=== PATIENT | female | born 1980 | race Caucasian/White ===

== ENCOUNTER → 2020-11-21 10:41 | Outpatient (CLI) | payer BC, SELFPAY ==
--- NOTE | ~2020-11-21 | MM_ITS ---
EXAMINATION: MM screening reynold BI w giovanna HISTORY: Screening TECHNIQUE: Craniocaudal and mediolateral oblique 3-D tomosynthesis images were obtained and synthetic 2-D images were generated. CAD analysis was submitted and interpreted. COMPARISON: No prior mammogram is available for comparison at this institution. BREAST PARENCHYMAL COMPOSITION: There are scattered areas of fibroglandular density. FINDINGS: There is no evidence of suspicious mass, calcification, or architectural distortion to sugg est malignancy in either breast. There has been no suspicious interval change. IMPRESSION: 1. No mammographic evidence of malignancy. 2. Recommend routine screening mammography in one year. BI-RADS Category 1: Negative Reviewed, dictated and finalized at location [facility].
== END ==
PROVIDERS: PCP Physician Assistant; Visit Provider Physician Assistant
DX: Z12.31 Encounter for screening mammogram for malignant neoplasm of breast (principal)
CPT/HCPCS: 77063; 77067

== ENCOUNTER 2021-06-09 08:39 | Outpatient (RCR) | payer BC, SELFPAY ==
[2021-06-09 12:32] VITALS: BP 139/90; PULSE 80; RESP 18; TEMP 35.9; O2SAT 99
[2021-06-09] MEDS: diphenhydrAMINE HCl CAP 25 MG CAPSULE PO (12:37)
[2021-06-09] MEDS: FAMOTIDINE 20 MG TABLET PO (12:37)
[2021-06-09] MEDS: ACETAMINOPHEN 325 MG TABLET 650 MG PO (12:37)
[2021-06-09 14:17] VITALS: BP 150/80
--- NOTE | 2021-06-10 09:50 | PC.NURSE ---
Called MS Mazariegos and she is feeling tired but better. She was happy we had this service available and has no other questions at this time.
== END 2021-06-09 17:00 ==
LOC: AMCINF 08:39
PROVIDERS: PCP Family Medicine; Visit Provider Internal Medicine Hematology & Oncology
DX: U07.1 COVID-19 (principal)
CPT/HCPCS: A9270; M0243; Q0243

== ENCOUNTER 2024-04-11 22:57 | Emergency (ER) | payer BC, SELFPAY ==
[2024-04-11 23:22] LABS: Basophils Percent Auto 0.5 % (0.2-1.2); Eosinophils Absolute Auto 0.3 K/mm3 (0-0.3); Eosinophils Percent Auto 3.7 % (0-4.4); Hematocrit 38.8 % (37.0-47.0); Hemoglobin 13.7 g/dL (12.0-15.0); Immature Granulocyte Absolute 0.02 K/mm3 (0.00-0.031); Immature Granulocyte Percent A 0.2 % (0-0.5); Lymphocytes Absolute Auto 2.06 K/mm3 (0.9-3.2); Lymphocytes Percent Auto 24.4 % (18.3-44.2); Mean Corpuscular HGB Conc 35.3 g/dl (32-36); Mean Corpuscular Hemoglobin 29.3 pg (26-34); Mean Corpuscular Volume 83.1 fl (80-100); Mean Platelet Volume 8.8 fl (7.4-10.4); Monocytes Absolute Auto 0.6 K/mm3 (0.1-0.6); Monocytes Percent Auto 6.6 % (2.6-8.5); Neutrophils Absolute Auto 5.5 K/mm3 (1.3-6.7); Neutrophils Percent Auto 64.6 % (45.5-73.1); Platelet Count Result 345 k/mm3 (150-375); Red Blood Count 4.67 M/mm3 (4.2-5.4); Red Cell Distribution Width 13.8 % (11.5-14.5); White Blood Count 8.4 K/mm3 (4.5-10.0)
[2024-04-11 23:32] LABS: Alanine Aminotransferase 27 U/L (6-35); Albumin Level 4.7 g/dL (3.5-5.1); Alkaline Phosphatase 75 U/L (38-126); Anion Gap 9 mmol/L (4-12); Aspartate Amino Transferase 29 U/L (14-36); Bilirubin,Total 0.6 mg/dL (0.2-1.3); Blood Urea Nitrogen 11 mg/dL (7-17); Calcium 9.3 mg/dL (8.4-10.2); Carbon Dioxide 31 mmol/L (22-30); Chloride 98 mmol/L (98-107); Estimated CRCL calculation 155 ml/min; Estimated Glomerular Filt Rate > 60; Glucose 125 mg/dL (65-110); Lipase 66 U/L (23-300); Potassium 3.1 mmol/L (3.4-5.0); Sodium 138 mmol/L (137-145)
--- NOTE | 2024-04-11 23:59 | ED.ABDPAIN ---
HPI - Abdominal Pain General Chief Complaint: Abdominal Pain Stated Complaint: abd pain/cramping, vomiting Time Seen by Provider: 04/11/24 23:58 Source: patient Mode of arrival: ambulatory Limitations: no limitations History of Present Illness HPI narrative: This is a 43 year old female with PMH of PCOS, HTN, HLD, hepatic steatosis who presents to the ED with chief complaint of sudden-onset left-sided abdominal pain/cramping this started this evening around 1900. Patient reports that she has had associated N/V. Reports constipation and diffuse abdominal cramping pain with bowel movements. Describes pain is mainly a cramping and spasm like pain. Denies fevers, chest pain, shortness of breath, diarrhea, GI bleeding symptoms. Related Data Home Medications Medication Instructions Recorded Confirmed nystatin 100,000 unit/gram topical topical 09/06/23 ointment omeprazole 20 mg capsule,delayed 20 mg PO 09/06/23 release triamcinolone acetonide 0.1 % topical 09/06/23 topical ointment Allergies Allergy/AdvReac Type Severity Reaction Status Date / Time No Known Allergies Allergy Verified 09/06/23 10:33 Review of Systems Review of Systems: All systems as dictated in HPI PMFSH Past Medical History Medical History (Updated 04/12/24 @ 03:44 by Hernandez Nj PA-C) Anxiety Depression GERD (gastroesophageal reflux disease) Hepatic steatosis Hyperlipidemia Hypertension Hypothyroidism Lichen sclerosus PCOS (polycystic ovarian syndrome) Surgical History Surgical History (Updated 09/09/23 @ 14:44 by Yesi Mcrae, PAKristineC) History of total abdominal hysterectomy and bilateral salpingo-oophorectomy Family History Family History (Updated 09/09/23 @ 10:11 by Yesi Mcrae, PAKristineC) Father Hypertension Acute myocardial infarction Heart disease S/P CABG Mother Hypertension Nbzjrlh-Aqsao-Fzedr disease Grandparent Cerebrovascular accident Heart disease Hypertension Acute myocardial infarction Misxmdv-Zwpwz-Dyvpi disease Hypothyroidism Social History Social History (Updated 09/06/23 @ 10:38 by Le Ramos MA) Smoking status: Former smoker Tobacco type: cigarettes Additional smoking assessment comments: socially in college Alcohol intake: former Substance use: current Substance use type: marijuana Do You Feel Safe in your Home?: Yes Lack of Transportation: No Lack of Food: Never True Current Housing: I Have Housing Concerned About Future Housing: No Difficulty Paying Gas/Electric Bills: No Difficulty Paying for Meds: No Currently Unemployed: No Education: Bachelor's Degree Difficulty w/ Childcare or Family Care: No Living arrangements: with family Occupation/Education: unemployed Gender identity (if verbalized by the patient): Female Sexual Orientation (if Verbalized by the Patient): Straight or Heterosexual Spiritual care concerns: No Exam Narrative: GENERAL: Well-appearing, well-nourished, and in no acute distress. HEAD: Normocephalic, atraumatic. EYES: PERRLA and EOMI. ENT: Nares clear, no rhinorrhea or epistaxis. Mucous membranes moist. Oropharynx without tonsillar hypertrophy exudate or other lesions. NECK: Supple. No adenopathy or masses. CHEST: No respiratory distress. Clear to auscultation. No wheezes rales or rhonchi HEART: Regular rate and rhythm. No murmur heard. Normal peripheral pulses. ABDOMEN: Soft, nontender, nondistended, normal active bowel sounds. Negative flank tenderness MSK: Normal range of motion. No edema. SKIN: Warm, dry, no rash. NEURO: Alert and oriented x4. No focal deficits. PSYCH: Normal mood and affect. Course Vital Signs Vital signs: Vital Signs Temperature 97.6 F 04/12/24 00:16 Pulse Rate 63 04/12/24 00:16 Respiratory Rate 17 04/12/24 00:16 Blood Pressure 187/123 H 04/12/24 00:16 Pulse Oximetry 100 04/12/24 00:16 Temperature 97.6 F 04/12/24
[2024-04-12] MEDS: SODIUM CHLORIDE 0.9% IV 1,000 ML 999 ML IV CONT (00:12)
[2024-04-12] MEDS: ONDANSETRON INJ 4 MG/2 ML VIAL IV PUSH (00:13)
[2024-04-12] MEDS: KETOROLAC 15 MG/ML VIAL (*BKC) IV PUSH (00:14)
[2024-04-12] MEDS: POTASSIUM CHLORIDE 20 MEQ ER TABLET 40 MEQ PO (00:15)
[2024-04-12 00:16] VITALS: BP 187/123; PULSE 63; RESP 17; TEMP 36.4; O2SAT 100
--- NOTE | 2024-04-12 00:20 | PC.NURSE ---
Patient politely refuses straight catheter for urinary sample
[2024-04-12] MEDS: DICYCLOMINE HCL INJ 20 MG/2 ML VIAL IM (00:32)
[2024-04-12 02:15] VITALS: BP 157/80; PULSE 92; RESP 16; TEMP 36.7; O2SAT 99
[2024-04-12 03:52] LABS: BEDSIDEPREGUCG Negative (Negative)
[2024-04-12 03:58] LABS: Add Urine Microscopic? NO; Appearance Urine Clear (Clear); Bacteria Urine None Seen /hpf; Bilirubin Urine Negative (Negative); Blood Urine Negative (Negative); Color Urine Yellow (Yellow); Glucose Urine UA Negative (Negative); Ketones Urine Negative (Negative); Leukocyte Esterase Ur Negative LEU/UL (Negative); Nitrate Urine Negative (Negative); Non Pathogenic Casts 0-2; Protein Urine Negative (Negative); RBC Urine 0-2 /hpf (0-2); Specific Grav Ur 1.008 (1.001-1.035); Squamous Epithelial Cell Urine None Seen /hpf (Few); Urobilinogen Urine 0.2 mg/dL (<2.0); WBC Urine 0-5 /hpf (0-3); pH Urine 6.5 (5.0-9.0)
== END 2024-04-12 02:20 | disposition home or self-care (01) ==
PROVIDERS: Emergency Medicine; Emergency Provider Physician Assistant
DX: K52.9 Noninfective gastroenteritis and colitis, unspecified (principal); I10 Essential (primary) hypertension; E78.5 Hyperlipidemia, unspecified; E28.2 Polycystic ovarian syndrome; E03.9 Hypothyroidism, unspecified; K21.9 Gastro-esophageal reflux disease without esophagitis; Z87.891 Personal history of nicotine dependence; Z79.899 Other long term (current) drug therapy
CPT/HCPCS: 36415; 80053; 81003; 81025; 83690; 85025; 96361; 96372; 96374; 96375; 99284; A9270; J0500; J1885; J2405; J7030

== ENCOUNTER 2024-08-31 00:26 | Day surgery (SDC) | payer BC, SELFPAY ==
[2024-08-20 11:16] VITALS: BMI 49.7
[2024-08-31 12:22] VITALS: BP 170/98; PULSE 78; RESP 16; TEMP 35.8; O2SAT 100; BMI 50.5
[2024-08-31] MEDS: LACTATED RINGERS 1,000 ML 150 ML IV CONT (12:31)
--- NOTE | 2024-08-31 12:35 | WPDANESEPPF ---
Anes - Initial Pre Proc Eval Procedure: Operation Date: 08/31/24 13:30 Proposed Procedures p Esophagogastroduodenoscopy - Kahlil Reynolds MD Date/Time: 08/31/24 12:35 Surgeon: Kahlil Reynolds MD Pre Op Diagnosis: GERD Patient Data Age: 43 Gender: F Height: 1.63 m Weight: 133.5 kg Last Vital Signs Temp 35.8 C L 08/31/24 12:22 Pulse 78 08/31/24 12:22 Resp 16 08/31/24 12:22 BP 170/98 H 08/31/24 12:22 Pulse Ox 100 08/31/24 12:22 O2 Del Method Room Air 08/31/24 12:22 Allergies Allergy/AdvReac Type Severity Reaction Status Date / Time No Known Allergies Allergy Verified 08/31/24 12:19 Home Medications ?Medication ?Instructions ?Recorded ?Confirmed ?Type nystatin 100,000 unit/gram topical 1 applic topical BID PRN itching 09/06/23 08/31/24 History ointment omeprazole 20 mg capsule,delayed 20 mg PO DAILY 09/06/23 08/31/24 History release triamcinolone acetonide 0.1 % 1 applic topical PRN itching 09/06/23 History topical ointment nifedipine 60 mg tablet,extended See Rx Instructions .Route 09/16/23 08/20/24 Rx release .COMPLEX #90 tabs venlafaxine 150 mg 150 mg PO DAILY depression 90 days 11/10/23 08/31/24 Rx capsule,extended release 24 hr #90 caps rosuvastatin 10 mg tablet See Rx Instructions .Route 12/21/23 08/31/24 Rx .COMPLEX #90 tabs levothyroxine 137 mcg tablet See Rx Instructions .Route 03/29/24 08/31/24 Rx .COMPLEX #90 tabs losartan 100 See Rx Instructions .Route 03/29/24 08/31/24 Rx mg-hydrochlorothiazide 25 mg tablet .COMPLEX #90 tabs methocarbamol 500 mg tablet 500 mg PO .qday 08/20/24 08/31/24 History potassium chloride 25 mEq oral 20 meq PO DAILY 08/20/24 08/31/24 History packet Patient hx anesthesia problems: none Family hx anesthesia problems: none Results Review: All pre-operative results and documents have been reviewed as part of the pre-operative evaluation. [facility] Past Medical History Medical History (Updated 04/13/24 @ 00:00 by Gary Moncada) Lichen sclerosus Anxiety Depression Hepatic steatosis GERD (gastroesophageal reflux disease) Hyperlipidemia Hypertension Hypothyroidism PCOS (polycystic ovarian syndrome) Surgical History Surgical History (Updated 09/09/23 @ 14:44 by Yesi Mcrae, PAKhai) History of total abdominal hysterectomy and bilateral salpingo-oophorectomy Family History Family History (Updated 09/09/23 @ 10:11 by Yesi Mcrae, PA-C) Father Hypertension Acute myocardial infarction Heart disease S/P CABG Mother Hypertension Nknpbcb-Cagnb-Opwkb disease Grandparent Cerebrovascular accident Heart disease Hypertension Acute myocardial infarction Vzhawti-Qgvef-Oyryo disease Hypothyroidism Social History Social History (Updated 08/31/24 @ 12:39 by Robert Cummins DO) Smoking status: Current some day smoker Tobacco type: e-cigarettes/vaping Additional smoking assessment comments: socially in college Alcohol intake: former Substance use: former Substance use type: marijuana Other substance usage details: daily Do You Feel Safe in your Home?: Yes Lack of Transportation: No Lack of Food: Never True Current Housing: I Have Housing Concerned About Future Housing: No Difficulty Paying Gas/Electric Bills: No Difficulty Paying for Meds: No Currently Unemployed: No Education: Bachelor's Degree Difficulty w/ Childcare or Family Care: No Living arrangements: with family Occupation/Education: unemployed Gender identity (if verbalized by the patient): Female Sexual Orientation (if Verbalized by the Patient): Straight or Heterosexual Spiritual care concerns: No Anes - Eval Final PreProcedure Day of Procedure 08/31/24 12:35 Patient weight: super morbidly obese Heart: regular rate and rhythm Lungs: clear to auscultation Airway: Mallampati scale class II Neurological: alert and oriented Last oral intake: >/= 8 hours ASA classification: III Emergent: no Anesthetic plan: proceed Anesthesia type and monitoring: general GIVS and standard monitoring Results Review: All pre-operative results and documents have been reviewed as part of the pre-operative evaluation. Informed Consent: The patient's anesthetic plan and its attendant risks and benefits were discussed with the patient/family/POA. Questions were solicited and answers provided to the satisfaction of the patient/family/POA.
--- NOTE | 2024-08-31 13:20 | PM.HPGS ---
History of Present Illness History of Present Illness Consent: Risks, benefits, and alternatives have been discussed and questions answered. Patient agrees to proceed with procedure. Chief complaint: GERD Narrative: Margarita Mazariegos is a 43 year old female with gerd on ppi, never had egd, also morbid obesity Review of Systems Review of Systems: All systems reviewed & are unremarkable except as noted in HPI and below PMFSH Past Medical History Medical History (Updated 08/31/24 @ 13:24 by Kahlil Reynolds MD) Obesity, morbid, BMI 50 or higher Lichen sclerosus Anxiety Depression Hepatic steatosis GERD (gastroesophageal reflux disease) Hyperlipidemia Hypertension Hypothyroidism PCOS (polycystic ovarian syndrome) Surgical History Surgical History (Updated 09/09/23 @ 14:44 by Yesi Mcrae, PAKristineC) History of total abdominal hysterectomy and bilateral salpingo-oophorectomy Family History Family History (Updated 09/09/23 @ 10:11 by Yesi Mcrae, PAKristineC) Father Hypertension Acute myocardial infarction Heart disease S/P CABG Mother Hypertension Smqczcj-Dxtzm-Mrsuq disease Grandparent Cerebrovascular accident Heart disease Hypertension Acute myocardial infarction Tdugxva-Qxbjq-Nosyu disease Hypothyroidism Social History Social History (Updated 08/31/24 @ 12:39 by Robert Cummins DO) Smoking status: Current some day smoker Tobacco type: e-cigarettes/vaping Additional smoking assessment comments: socially in college Alcohol intake: former Substance use: former Substance use type: marijuana Other substance usage details: daily Do You Feel Safe in your Home?: Yes Lack of Transportation: No Lack of Food: Never True Current Housing: I Have Housing Concerned About Future Housing: No Difficulty Paying Gas/Electric Bills: No Difficulty Paying for Meds: No Currently Unemployed: No Education: Bachelor's Degree Difficulty w/ Childcare or Family Care: No Living arrangements: with family Occupation/Education: unemployed Gender identity (if verbalized by the patient): Female Sexual Orientation (if Verbalized by the Patient): Straight or Heterosexual Spiritual care concerns: No Meds Home Medications and Allergies Home Medications ?Medication ?Instructions ?Recorded ?Confirmed ?Type nystatin 100,000 unit/gram topical 1 applic topical BID PRN itching 09/06/23 08/31/24 History ointment omeprazole 20 mg capsule,delayed 20 mg PO DAILY 09/06/23 08/31/24 History release triamcinolone acetonide 0.1 % 1 applic topical PRN itching 09/06/23 History topical ointment nifedipine 60 mg tablet,extended See Rx Instructions .Route 09/16/23 08/20/24 Rx release .COMPLEX #90 tabs venlafaxine 150 mg 150 mg PO DAILY depression 90 days 11/10/23 08/31/24 Rx capsule,extended release 24 hr #90 caps rosuvastatin 10 mg tablet See Rx Instructions .Route 12/21/23 08/31/24 Rx .COMPLEX #90 tabs levothyroxine 137 mcg tablet See Rx Instructions .Route 03/29/24 08/31/24 Rx .COMPLEX #90 tabs losartan 100 See Rx Instructions .Route 03/29/24 08/31/24 Rx mg-hydrochlorothiazide 25 mg tablet .COMPLEX #90 tabs methocarbamol 500 mg tablet 500 mg PO .qday 08/20/24 08/31/24 History potassium chloride 25 mEq oral 20 meq PO DAILY 08/20/24 08/31/24 History packet Allergies Allergy/AdvReac Type Severity Reaction Status Date / Time No Known Allergies Allergy Verified 08/31/24 12:19 Vital Signs Vital Signs - 24 hr 08/31/24 12:22 Temperature 96.5 F L Pulse Rate 78 Respiratory Rate 16 Blood Pressure 170/98 H Pulse Oximetry 100 Oxygen Delivery Room Air Exam Const: General: obese HENMT: Face/Nose/Sinus: Normal nares present Eyes: General: appearance normal, both eyes and all related structures Neck: Neck: no JVD Resp: Auscultation: clear to auscultation bilaterally Cardio: Rate: regular rate Rhythm: regular rhythm GI: Inspection: non-distended GI Palp: Yes Soft to palpation Skin: General skin exam: normal color Neuro: Speech: normal speech Extrem: General: normal to inspection Psych: Mental Status: mental status grossly normal Assessment and Plan Assessment and plan (1) GERD (gastroesophageal reflux disease): Code(s): K21.9 - Gastro-esophageal reflux disease without esophagitis Status: Acute Assessment and Plan: egd with bx (2) Obesity, morbid, BMI 50 or higher: Code(s): E66.01 - Morbid (severe) obesity due to excess calories Status: Acute
[2024-08-31] MEDS: BENZOCAINE (*SP) 60 ML SPRAY CAN (HURRICAINE) 1 SPRAY MUCOUS MEM (13:29)
[2024-08-31 13:33] VITALS: BP 136/75; PULSE 87; RESP 20; O2SAT 100
[2024-08-31 13:43] VITALS: BP 144/83; PULSE 85; RESP 20; O2SAT 100
[2024-08-31 13:53] VITALS: BP 149/86; PULSE 72; RESP 19; O2SAT 100
== END 2024-08-31 13:55 | disposition home or self-care (01) ==
PROVIDERS: PCP Family Medicine; Visit Provider Internal Medicine Gastroenterology
PROC: 0DJ08ZZ Inspection of Upper Intestinal Tract, Via Natural or Artificial Opening Endoscopic (ICD-10-PCS; CPT 43239; principal; 2024-08-31 13:30)
DX: K29.50 Unspecified chronic gastritis without bleeding (principal); K21.9 Gastro-esophageal reflux disease without esophagitis; F41.8 Other specified anxiety disorders; E78.5 Hyperlipidemia, unspecified; I10 Essential (primary) hypertension; E03.9 Hypothyroidism, unspecified; E66.01 Morbid (severe) obesity due to excess calories; Z68.43 Body mass index [BMI] 50.0-59.9, adult
CPT/HCPCS: 43239; 88305; J1596; J2003; J2704; J7120

== ENCOUNTER 2024-10-02 12:20 | Outpatient (CLI) | payer BC, SELFPAY ==
--- NOTE | ~2024-10-02 | XR_ITS ---
Thoracic spine: Clinical Indication: Back pain AP and lateral views were performed. No fracture is seen. There is normal alignment of the vertebrae. The intervertebral disc spaces appe ar normal. Paravertebral soft tissues appear normal. Impression: No significant abnormalities noted. Reviewed, dictated and finalized at [facility]. Impression: No significant abnormalities noted.
== END 2024-10-02 12:21 | disposition home or self-care (01) ==
LOC: MICIMG 12:24
PROVIDERS: PCP Family Medicine; Visit Provider Family Medicine
DX: M54.6 Pain in thoracic spine (principal)
CPT/HCPCS: 72072

== ENCOUNTER 2024-11-16 08:46 | Outpatient (CLI) | payer BC, SELFPAY ==
--- NOTE | ~2024-11-16 | MR_ITS ---
MRI of the thoracic spine Clinical History: Pain Technique: Axial T2-weighted and gradient images, and sagittal T1-weighted, T2-weighted, and STIR sourav ges were acquired. Findings: There is no fracture or subluxation of the thoracic spine. Vertebral bodies maintain normal height and alignment. No bone marrow signal abnormality seen. There are mild disc bulges at T5-T6, T6-T7, without spinal canal stenosis or cord compression. No oth er significant disc bulge or herniation seen. Neural foramina are preserved throughout the thoracic s pine. There is multilevel mild to moderate degenerative disc narrowing, osteophytes of the mid to low er thoracic spine. No abnormal signal seen in the spinal cord. Paravertebral soft tissues are unremarkable. Impression: Mild degenerative spondylosis, as above. Reviewed, dictated and finalized at location [facility]. Impression: Mild degenerative spondylosis, as above.
== END 2024-11-16 08:47 | disposition home or self-care (01) ==
PROVIDERS: PCP Family Medicine; Visit Provider Family Medicine
DX: M47.814 Spondylosis without myelopathy or radiculopathy, thoracic region (principal); R25.2 Cramp and spasm
CPT/HCPCS: 72146

== ENCOUNTER 2024-11-20 10:24 | Outpatient (CLI) | payer BC, SELFPAY ==
--- NOTE | ~2024-11-20 | MM_ITS ---
EXAMINATION: MM screening reynold BI w giovanna HISTORY: Screening TECHNIQUE: Craniocaudal and mediolateral oblique 3-D tomosynthesis images were obtained and synthetic 2-D images were generated. CAD analysis was submitted and interpreted. COMPARISON: 11/21/2020 BREAST PARENCHYMAL COMPOSITION: Not dense: There are scattered areas of fibroglandular density. FINDINGS: The right breast is stable. No suspicious masses, calcifications or architectural distortio n to suggest malignancy. There are multiple new focal asymmetries/masses in the left breast, best see n on CC view. There are no suspicious calcifications. IMPRESSION: 1. Multiple new focal asymmetry/masses of the left breast. 2. Additional mammographic views and possible breast ultrasound are recommended. BI-RADS Category 0: Incomplete: Needs additional imaging evaluation. Reviewed, dictated and finalized at location [facility]. IMPRESSION: 1. Multiple new focal asymmetry/masses of the left breast. 2. Additional mammographic views and possible breast ultrasound are recommended . BI-RADS Category 0: Incomplete: Needs additional imaging evaluation.
== END 2024-11-20 10:25 | disposition home or self-care (01) ==
PROVIDERS: PCP Family Medicine; Visit Provider Family Medicine
DX: Z12.31 Encounter for screening mammogram for malignant neoplasm of breast (principal); R92.8 Other abnormal and inconclusive findings on diagnostic imaging of breast
CPT/HCPCS: 77063; 77067

== ENCOUNTER 2024-11-20 11:26 | Emergency (ER) | payer BC, SELFPAY ==
[2024-11-20 11:36] VITALS: BP 154/100; PULSE 87; RESP 16; TEMP 36.3; O2SAT 98
--- NOTE | 2024-11-20 11:48 | ED.WOUNDLAC ---
HPI - Wound/Laceration General Chief Complaint: Wound/Laceration Stated Complaint: Infected Wound Time Seen by Provider: 11/20/24 11:53 Source: patient and RN notes reviewed Mode of arrival: ambulatory Limitations: dementia History of Present Illness HPI narrative: 44-year-old female presents concern for cap bite to right hand. She reports she got bit yesterday and today noticed redness around the wound. She reports a small amount of drainage. Denies fever, aches, chills, sweats. Denies decreased strength, sensation, range of motion hands or digits Related Data Home Medications Medication Instructions Recorded Confirmed Last Taken Type nystatin 100,000 unit/gram topical 1 applic topical BID PRN itching 09/06/23 08/31/24 Unknown History ointment omeprazole 20 mg capsule,delayed 20 mg PO DAILY 09/06/23 08/31/24 08/31/24 History release triamcinolone acetonide 0.1 % 1 applic topical PRN itching 09/06/23 Unknown History topical ointment methocarbamol 500 mg tablet 500 mg PO .qday 08/20/24 08/31/24 08/30/24 History potassium chloride 25 mEq oral 20 meq PO DAILY 08/20/24 08/31/24 08/30/24 History packet Allergies Allergy/AdvReac Type Severity Reaction Status Date / Time No Known Allergies Allergy Verified 08/31/24 12:19 Review of Systems Review of Systems: CONSTITUTIONAL: Denies malaise, chills, sweats, or fever. CARDIOVASCULAR: Denies chest pain, palpitations, or edema. RESPIRATORY: Denies cough or dyspnea. GASTROINTESTINAL: Denies abdominal pain, nausea, vomiting SKIN: Reports redness, swelling around the cap bite of the right hand. Denies purulent drainage, vesicles, bullae, numbness, pain beyond proportion MUSCULOSKELETAL: Denies joint pain or myalgia. NEUROLOGIC: Denies headache. All systems reviewed & are unremarkable except as noted in HPI and below PMFSH Past Medical History Medical History (Updated 11/20/24 @ 12:02 by Meredith Singh NP) Obesity, morbid, BMI 50 or higher Lichen sclerosus Anxiety Depression Hepatic steatosis GERD (gastroesophageal reflux disease) Hyperlipidemia Hypertension Hypothyroidism PCOS (polycystic ovarian syndrome) Surgical History Surgical History (Updated 09/09/23 @ 14:44 by Yesi Mcrae, PAKristineC) History of total abdominal hysterectomy and bilateral salpingo-oophorectomy Family History Family History (Updated 09/09/23 @ 10:11 by Yesi Mcrae, PA-C) Father Hypertension Acute myocardial infarction Heart disease S/P CABG Mother Hypertension Hyrqaux-Ooqxp-Tbbxs disease Grandparent Cerebrovascular accident Heart disease Hypertension Acute myocardial infarction Tumvfar-Mlgmb-Stthq disease Hypothyroidism Social History Social History (Updated 08/31/24 @ 12:39 by Robert Cummins DO) Smoking status: Current some day smoker Tobacco type: e-cigarettes/vaping Additional smoking assessment comments: socially in college Alcohol intake: former Substance use: former Substance use type: marijuana Other substance usage details: daily Do You Feel Safe in your Home?: Yes Lack of Transportation: No Lack of Food: Never True Current Housing: I Have Housing Concerned About Future Housing: No Difficulty Paying Gas/Electric Bills: No Difficulty Paying for Meds: No Currently Unemployed: No Education: Bachelor's Degree Difficulty w/ Childcare or Family Care: No Living arrangements: with family Occupation/Education: unemployed Gender identity (if verbalized by the patient): Female Sexual Orientation (if Verbalized by the Patient): Straight or Heterosexual Spiritual care concerns: No Comments At time of signature, agree with nursing past medical, surgical, social and family history. There is no relevant family history pertinent to the presenting complaint Exam Narrative: GENERAL: Well-appearing, well-nourished, and in no acute distress. HEAD: Normocephalic, atraumatic. EYES: PERRLA, conjunctivae clear ENT: Mucous membranes moist. NECK: Supple. No lymphadenopathy CHEST: Clear to auscultation. No respiratory distress. HEART: Regular rate and rhythm. SKIN: Warm, dry. Small scabbed puncture wound with surrounding Erythema, induration, tenderness, warmth with sharp margins noted to the dorsal right hand. No vesicles, bullae, necrosis, ecchymosis, crepitus noted. MUSC: Normal strength, sensation, range of motion to the right hand and digits. NEURO: Alert and oriented x3. PSYCH: Normal mood and affect Course Course Emergency Course: Patient is aware of diagnosis, understands and agrees to treatment plan. Anticipatory guidance given. Patient agrees to follow-up as directed and is aware of reasons to seek care at the emergency department. Portions of this record may have been created with voice recognition software Level of Care: Express Care Visit Vital Signs Vital signs: Vital Signs Temperature 97.4 F L 11/20/24 11:36 Pulse Rate 87 11/20/24 11:36 Respiratory Rate 16 11/20/24 11:36 Blood Pressure 154/100 H 11/20/24 11:36 Pulse Oximetry 98 11/20/24 11:36 Temperature 97.4 F L 11/20/24 11:36 Pulse Rate 87 11/20/24 11:36 Respiratory Rate 16 11/20/24 11:36 Blood Pressure 154/100 H 11/20/24 11:36 Pulse Oximetry 98 11/20/24 11:36 Reviewed. Critical Care Time Critical Care Time Critical Care Time: No Discharge Plan Discharge Clinical Impression: Cat bite Patient Disposition: Home Condition: Stable Instructions: Antibiotic Form, Animal Bite (ED) Additional Instructions: Please follow up with your Primary Care Doctor within 48-72 hours - call for an appointment. Rest and elevate affected area; apply moist heat 3-4 times daily for 10-15 minutes. Take Motrin 600mg every 8 hours with food for pain. Please take Antibiotics as directed. If you experience any worsening redness, swelling, streaking (red lines), fever or chills please go to the ER Patient Language: Japanese Prescriptions: New amoxicillin-pot clavulanate 875-125 mg tablet 1 tablet PO Q12H 10 Days Qty: 20 0RF No Action omeprazole 20 mg capsule,delayed release(DR/EC) 20 mg PO DAILY triamcinolone acetonide 0.1 % ointment 1 applic topical PRN (Reason: itching) nystatin 100,000 unit/gram ointment 1 applic topical BID PRN (Reason: itching) potassium chloride 25 mEq packet 20 meq PO DAILY methocarbamol 500 mg tablet 500 mg PO .qday nifedipine 60 mg tablet extended release See Rx Instructions .ROUTE .COMPLEX Qty: 90 1RF Dose Instruction: TAKE 1 TABLET BY MOUTH EVERY DAY Rx Instructions: TAKE 1 TABLET BY MOUTH EVERY DAY venlafaxine 150 mg capsule,extended release 24hr 150 mg PO DAILY 90 Days Qty: 90 2RF rosuvastatin 10 mg tablet See Rx Instructions .ROUTE .COMPLEX Qty: 90 2RF Dose Instruction: TAKE 1 TABLET BY MOUTH EVERY DAY FOR 30 DAYS Rx Instructions: TAKE 1 TABLET BY MOUTH EVERY DAY FOR 30 DAYS levothyroxine 137 mcg tablet See Rx Instructions .ROUTE .COMPLEX Qty: 90 1RF Dose Instruction: TAKE 1 TABLET BY MOUTH EVERY DAY IN THE MORNING ON EMPTY STOMACH Rx Instructions: TAKE 1 TABLET BY MOUTH EVERY DAY IN THE MORNING ON EMPTY STOMACH losartan-hydrochlorothiazide 100-25 mg tablet See Rx Instructions .ROUTE .COMPLEX Qty: 90 1RF Dose Instruction: TAKE 1 TABLET BY MOUTH EVERY DAY FOR 30 DAYS Rx Instructions: TAKE 1 TABLET BY MOUTH EVERY DAY FOR 30 DAYS Follow-up/Referrals: UNKNOWN,DOCTOR [Primary Care Provider] - Time of Disposition: 12:03
== END 2024-11-20 12:06 | disposition home or self-care (01) ==
PROVIDERS: Emergency Provider Nurse Practitioner
DX: S61.431A Puncture wound without foreign body of right hand, initial encounter (principal); W55.01XA Bitten by cat, initial encounter; I10 Essential (primary) hypertension; E03.9 Hypothyroidism, unspecified; E28.2 Polycystic ovarian syndrome; E78.5 Hyperlipidemia, unspecified; K21.9 Gastro-esophageal reflux disease without esophagitis; K76.0 Fatty (change of) liver, not elsewhere classified; E66.01 Morbid (severe) obesity due to excess calories; Z68.43 Body mass index [BMI] 50.0-59.9, adult; F41.9 Anxiety disorder, unspecified; F32.A Depression, unspecified; L90.0 Lichen sclerosus et atrophicus
CPT/HCPCS: 99213; G0463

== ENCOUNTER 2024-12-11 08:19 | Outpatient (CLI) | payer BC, SELFPAY ==
--- NOTE | ~2024-12-11 | MMUS_ITS ---
EXAMINATION: MM diagnostic reynold LT w giovanna, US breast LT complete HISTORY: Follow-up left breast asymmetries TECHNIQUE: Additional 3-D tomosynthesis images of the left breast were performed and synthetic 2-D im ages were generated. CAD analysis was submitted and interpreted. High resolution complete left breast ultrasound was performed. COMPARISON: Comparison to multiple prior studies sequentially, with oldest reviewed study dated 11/21. BREAST PARENCHYMAL COMPOSITION: Not dense: There are scattered areas of fibroglandular density. FINDINGS: MAMMOGRAPHIC FINDINGS: There is a focal asymmetry in the lower inner quadrant of the left breast, middle third. There is a s econd asymmetry in the upper outer quadrants of the left breast, middle third. There are no suspiciou s calcifications or architectural distortion. ULTRASOUND: Complete US of all 4 quadrants of the left breast/s and retroareolar region was reviewed. At 2:00, 12 cm from the nipple there is a heterogeneous oval parallel oriented hypoechoic mass measuring 11 x 14 x 6 mm without significant internal vascularity or posterior features. Echotexture is predominantly hyperechoic with areas of cystic change, likely benign. At 2:00, 8 cm from the nipple there is an ova l hyperechoic 9 mm mass, likely benign. Parallel orientation, no internal vascularity. Or posterior f eatures. At 11:00, 8 cm from the nipple there is an oval parallel oriented hyperechoic 3.1 cm mass, l ikely benign without internal vascularity or posterior features. IMPRESSION: 1. Probable benign left breast masses. 2. Recommend 6 month follow-up diagnostic left mammogram and Limited left breast ultrasound recommend ed. BI-RADS category 3, probably benign findings. Reviewed, dictated and finalized at location [] IMPRESSION: 1. Probable benign left breast masses. 2. Recommend 6 month follow-up diagnostic left mammogram and Limited left breas t ultrasound recommended. BI-RADS category 3, probably benign findings.
== END 2024-12-11 08:20 | disposition home or self-care (01) ==
LOC: MICIMG 08:21
PROVIDERS: PCP Family Medicine; Visit Provider Family Medicine
DX: R92.8 Other abnormal and inconclusive findings on diagnostic imaging of breast (principal)
CPT/HCPCS: 76641; 77061; 77065; G0279

== ENCOUNTER 2024-12-21 00:20 | Day surgery (SDC) | payer BC, SELFPAY ==
[2024-12-05 13:15] VITALS: BMI 51.1
--- OUTSIDE RECORDS SUMMARY | 2024-12-21 00:22 | XMS_ITS ---
Author Name JHONY REICH Address [address] [place] [address] Phone [facility] Address [address] [place] [address] Phone Care Team Providers Care Sailing Master Name Role Phone JESSICAPREETDO BOOKER Unavailable ALLERGIES, ADVERSE REACTIONS AND ALERTS Allergy Name Allergy Date Allergy Status Allergy Severity Allergy Reaction NO KNOWN DRUG ALLERGIES MEDICATIONS RxNorm Brand Name Prescription Ordered Value Order Unit Start Date Date Status Fill Status Indications [id number] rosuvast atin 10 mg tablet SIG: rosuvastatin 10 mg oral tablet, 90 days, Dispense #90 Tablet, 2 Refills, Directions: TAKE 1 TABLET BY MOUTH EVERY DAY FOR 30 DAYS 90 tablet 2023 Historic [id number] nifedipi ne 60 mg tablet extended release SIG: nifedipine 60 mg oral tablet extended release, 90 days, Dispense #90 Tablet, 2 Refills, Directions: TAKE 1 TABLET BY MOUTH EVERY DAY 90 tablet extende d release 2023 Historic [id number] losartan 100 mg tablet SIG: losartan 100 mg oral tablet, 90 days, Dispense #90 Tablet, 0 Refills, Directions: Take 1 oral tablet once a day 90 tablet 2023 Historic [id number] Klor-Con M20 20 mEq tablet,E R particle s/ludin ls SIG: Klor-Con M20 20 mEq oral tablet,ER particles/jourdan tals, 90 days, Dispense #90 Tablet, 1 Refills, Directions: Take 1 oral tablet once a day 90 tablet, ER particl es/jourdan tals 2023 Historic [id number] methocar bamol 500 mg tablet SIG: methocarbamol 500 mg oral tablet, 0 days, Dispense #90 Tablet, 0 Refills, Directions: take 1-3 tablets three times daily as needed for muscle spasm 90 tablet 2023 Historic [id number] levothyr oxine 137 mcg tablet SIG: levothyroxine 137 mcg oral tablet, 90 days, Dispense #90 Tablet, 0 Refills, Directions: TAKE 1 TABLET BY MOUTH EVERY DAY IN THE MORNING ON EMPTY STOMACH 90 tablet 2024 Historic [id number] methocar bamol 500 mg tablet SIG: methocarbamol 500 mg oral tablet, 0 days, Dispense #90 Tablet, 0 Refills, Directions: take 1-3 tablets three times daily as needed for muscle spasm 90 tablet 2024 Historic [id number] rosuvast atin 10 mg tablet SIG: rosuvastatin 10 mg oral tablet, 90 days, Dispense #90 Tablet, 2 Refills, Directions: TAKE 1 TABLET BY MOUTH EVERY DAY FOR 30 DAYS 90 tablet 2024 Current [id number] nifedipi ne 60 mg tablet extended release SIG: nifedipine 60 mg oral tablet extended release, 90 days, Dispense #90 Tablet, 2 Refills, Directions: TAKE 1 TABLET BY MOUTH EVERY DAY 90 tablet extende d release 2024 Current [id number] losartan 100 mg tablet SIG: losartan 100 mg oral tablet, 90 days, Dispense #90 Tablet, 0 Refills, Directions: Take 1 oral tablet once a day 90 tablet 2024 Historic [id number] LOSARTAN POTASSIU M 100 MG TAB 100 mg tablet SIG: LOSARTAN POTASSIUM 100 MG TAB, Dispense #90, 0 Refills, Directions: TAKE 1 TABLET BY MOUTH EVERY DAY 90 tablet 2024 Historic [id number] methocar bamol 500 mg tablet SIG: methocarbamol 500 mg oral tablet, 0 days, Dispense #90 Tablet, 0 Refills, Directions: take 1-3 tablets three times daily as needed for muscle spasm 90 tablet 2024 Historic [id number] VENLAFAX INE HCL ER 150 MG CAP 150 mg capsule, extended release 24hr SIG: venlafaxine 150 mg oral capsule,extend ed release 24hr, 90 days, Dispense #90 Capsule, 2 Refills, Directions: 150 MG ORALLY DAILY FOR DEPRESSION FOR 90 DAYS 90 capsule ,extend ed release 24hr 2024 Current [id number] clonazep am 0.5 mg tablet SIG: clonazepam 0.5 mg oral tablet, 30 days, Dispense #15 Tablet, 0 Refills, Directions: TAKE 1 TABLET BY MOUTH TWICE A DAY NEEDED FOR ANXIETY 15 tablet 2024 Historic [id number] clonazep am 0.5 mg tablet SIG: clonazepam 0.5 mg oral tablet, 30 days, Dispense #15 Tablet, 0 Refills, Directions: TAKE 1 TABLET BY MOUTH TWICE A DAY NEEDED FOR ANXIETY 15 tablet 2024 Historic [id number] methocar bamol 500 mg tablet SIG: methocarbamol 500 mg oral tablet, 0 days, Dispense #90 Tablet, 0 Refills, Directions: take 1-3 tablets three times daily as needed for muscle spasm 90 tablet 2024 Historic [id number] omeprazo le 20 mg capsule, delayed release( DR/EC) SIG: omeprazole 20 mg oral capsule,delaye d release(DR/EC) , 0 days, Dispense #30 Capsule, 0 Refills, Directions: Take 1 oral capsule 30 capsule ,delaye d release (DR/EC) 2024 Current [id number] Klor-Con M20 20 mEq tablet,E R particle s/ludin ls SIG: Klor-Con M20 20 mEq oral tablet,ER particles/jourdan tals, 30 days, Dispense #60 Tablet, 0 Refills, Directions: Take 1 oral tablet twice a day 60 tablet, ER particl es/jourdan tals 2024 Historic [id number] methocar bamol 500 mg tablet SIG: methocarbamol 500 mg oral tablet, 30 days, Dispense #90 Tablet, 1 Refills, Directions: take 1-3 tablets three times daily as needed for muscle spasm 90 tablet 2024 Historic [id number] clonazep am 0.5 mg tablet SIG: clonazepam 0.5 mg oral tablet, 30 days, Dispense #15 Tablet, 0 Refills, Directions: TAKE 1 TABLET BY MOUTH TWICE A DAY NEEDED FOR ANXIETY 15 tablet 2024 Historic [id number] LEVOTHYR OXINE 137 MCG TABLET 137 mcg tablet SIG: levothyroxine 137 mcg oral tablet, 90 days, Dispense #90 Tablet, 0 Refills, Directions: TAKE 1 TABLET BY MOUTH EVERY DAY IN THE MORNING ON EMPTY STOMACH 90 tablet 2024 Historic [id number] CLONAZEP AM 0.5 MG TABLET 0.5 mg tablet SIG: CLONAZEPAM 0.5 MG TABLET, Dispense #15, 0 Refills, Directions: TAKE 1 TABLET BY MOUTH TWICE A DAY NEEDED FOR ANXIETY 15 tablet 2024 Historic [id number] potashleyiu m chloride 20 mEq tablet,E R particle s/ludin ls SIG: potassium chloride 20 mEq oral tablet,ER particles/jourdan tals, 90 days, Dispense #180 Tablet, 1 Refills, Directions: TAKE 1 TABLET BY MOUTH TWICE A DAY 180 tablet, ER particl es/jourdan tals 2024 Current [id number] LEVOTHYR OXINE 137 MCG TABLET 137 mcg tablet SIG: levothyroxine 137 mcg oral tablet, 90 days, Dispense #90 Tablet, 0 Refills, Directions: TAKE 1 TABLET BY MOUTH EVERY DAY IN THE MORNING ON EMPTY STOMACH 90 tablet 2024 Current [id number] irbesart an 300 mg tablet SIG: irbesartan 300 mg oral tablet, 30 days, Dispense #30 Tablet, 0 Refills, Directions: Take 1 oral tablet once a day 30 tablet 2024 Historic [id number] clonazep am 0.5 mg tablet SIG: clonazepam 0.5 mg oral tablet, 30 days, Dispense #15 Tablet, 0 Refills, Directions: TAKE 1 TABLET BY MOUTH TWICE A DAY NEEDED FOR ANXIETY 15 tablet 2024 Current [id number] irbesart an 300 mg tablet SIG: irbesartan 300 mg oral tablet, 30 days, Dispense #30 Tablet, 0 Refills, Directions: Take 1 oral tablet once a day 30 tablet 2024 Current [id number] methocar bamol 500 mg tablet SIG: methocarbamol 500 mg oral tablet, 30 days, Dispense #90 Tablet, 1 Refills, Directions: take 1-3 tablets three times daily as needed for muscle spasm 90 tablet 2024 Current PROBLEMS Problem Code Problem Description Problem Status Problem Da te Problem End Date K21.5-AAYYPH-WGTBYJHDO L REFLUX DISEASE WITHOUT ESOPHAGITIS GASTRO-ESOPHAGEAL REFLUX DISEASE WITHOUT ESOPHAGITIS Chronic 03/24/2024 F41.0-PANIC DISORDER [EPISODIC PAROXYSMAL ANXIETY] WITHOUT AGORAPHOBIA PANIC DISORDER [EPISODIC PAROXYSMAL ANXIETY] WITHOUT AGORAPHOBIA Chronic 03/24/2024 H93.13-TINNITUS, BILATERAL TINNITUS, BILATERAL Chronic 03/24/2024 F90.6-Gmzhvqzow-icypwi t hyperactivity disorder, unspecified type Attention-deficit hyperactivity disorder, unspecified type Chronic 03/24/2024 F33.1-MAJOR DEPRESSIVE DISORDER, RECURRENT, MODERATE MAJOR DEPRESSIVE DISORDER, RECURRENT, MODERATE Chronic 03/24/2024 F41.1-GENERALIZED ANXIETY DISORDER GENERALIZED ANXIETY DISORDER Chronic 03/24/2024 K58.1-Irritable bowel syndrome with constipation Irritable bowel syndrome with constipation Chronic 02/28/2024 E28.2-Polycystic ovarian syndrome Polycystic ovarian syndrome Chronic 02/28/2024 R07.89-OTHER CHEST PAIN OTHER CHEST PAIN Chronic 02/28/2024 F95-TUVDAILFR (PRIMARY) HYPERTENSION ESSENTIAL (PRIMARY) HYPERTENSION Chronic 05/24/2024 E78.49-OTHER HYPERLIPIDEMIA OTHER HYPERLIPIDEMIA Chronic 05/24/2024 L90.0-LICHEN SCLEROSUS ET ATROPHICUS LICHEN SCLEROSUS ET ATROPHICUS Chronic 05/24/2024 E87.6-HYPOKALEMIA HYPOKALEMIA Chronic 02/28/2024 PROCEDURES Procedure Description Date Notes NO PROCEDURES PERFORMED ASSESSMENTS Assessment None PLAN OF TREATMENT Assessment Planned Activity LOINC Planned Lex e None CONSULTATION NOTE Note Author Date None HISTORY AND PHYSICAL NOTE Note Author Date None PROGRESS NOTE Note Author Date None DISCHARGE SUMMARY Note Author Date None CHIEF COMPLAINT AND REASON FOR VISIT FUNCTIONAL STATUS Functional or Cognitive Find ing None MENTAL STATUS Cognitive Finding None ENCOUNTERS Encounter Type Provider Diagnoses Start Date Location None SOCIAL HISTORY Social Status Observation Current Every Day Smoker Sex:Female CARE TEAM INFORMATION Sailing Master Provider ID Role Location Phone JHONY REICH [phone] PHYSICIAN [facility] [place] [address]
--- OUTSIDE RECORDS SUMMARY | 2024-12-21 00:22 | XMS_ITS | Encounter Summary ---
Author Organization [facility] Address [address] [place] [address] Care Team Providers Care Accident Investigator Name Role Phone Julien Eduardo DO Primary Care Provider Reason for Visit * Reason Onset Date Comments Question 06/06/2024 Encounter Details Date Type Department Care Team (Late st Contact Info) Description 06/06/2024 Telephone [facility] - RIG [facility]ILDER [address] [facility] [address] [place] [address] Zaida Wheeler MD [address] [facility] [address] [place] [address] Question Social History Tobacco Use Types Packs/Day Years Used Date Smoking Tobacco: Former Smokeless Tobacco: Never Alcohol Use Standard Drinks/Week Comments Yes 0 (1 standard drink = 0.6 oz pur e alcohol) Comments No Sex and Gender Information Value Date Recorded Sex Assigned at Not on file Legal Sex Female 10:18 AM CDT Gender Identity Not on file Sexual Orientation Not on file documented as of this encounter Miscellaneous Notes * Telephone Encounter - Felipa Esquivel RN - 06/06/2024 9:37 AM GOLF CLUB ASSEMBLER TVUS 05/29/24 results: Transvaginal ultrasound was performed. Uterus is surgically absent. Both ovaries appear normal. No free fluid seen in the pelvis. Sonographically normal pelvis. RN called pt to make aware. Pt said she is feeling fine at the moment but does notice the left sideis more tender at time and seens cyclical. Wants to know if due to left ovary. RN can see results on US Left Ovary ======== Appears normal. Size 28 mm x 29 mm x 21 mm. Vol 9.1 cm? Cyst(s) Size 13.6 mm x 15.4 mm x 11.6 mm. Mean 13.5 mm. Vol 1.272 cm?. Follicle Pt said she will continue to treat IBS and go to PT and let her GP know. She will contact us if anyfurther issues CLUB ASSEMBLER * Telephone Encounter - Shae Estrada - 06/06/2024 8:59 AM CST Pt calling to get someone to call her with the results of her US done last week Please contact # [phone] CLUB ASSEMBLER documented in this encounter Plan of Treatment Upcoming Encounters Date Type Department Care Team (Late st Contact Info) Description 02/28/2025 9:50 AM CDT Office Visit [facility] - RIG BUILDER [address] [place] [address] Masha Jay, CONFERENCE RESERVATIONIST-CHICKEN HANDLER [address] [address] documented as of this encounter Visit Diagnoses Not on filedocumented in this encounter Care Teams Accident Investigator Relationship Specialty Start Date End Date Julien Eduardo DO [address] [place] [address] PCP - General Family Medicine 04/17/24 documented as of this encounter
--- OUTSIDE RECORDS SUMMARY | 2024-12-21 00:22 | XMS_ITS | Clinical Summary ---
Author Organization [facility] Address [address] [place] [address] Care Team Providers Care Hairspring Setter Name Role Phone Julien Eduardo DO Primary Care Provider [phone] Source Comments [facility],non-owned Affiliates and Associated Physician Practices is amultiple site organization consisting of ambulatory clinics and hospital sitesin [place], [place], [place] and [place]. This disclosure is being madepursuant to the Care Everywhere program and may not contain all information available regarding this patient. Last updated 18.[employer] [facility] Allergies No known active allergies Medications * Be aware that medications may not be up to date on this document. Alwaysverify current medications with the patient. omeprazole (PriLOSEC) 20 MG capsule Take 1 (one) capsule by mouth daily before breakfast Active NIFEdipine CR 24hr (Adalat CC) 60 MG tablet Take 1 (one) tablet by mouth once daily Take on an empty stomach. Active LOSARTAN POTASSIUM-HCTZ PO Take 25 mg by mouth Active Rosuvastatin Calcium 10 MG CPSP Take 10 mg by mouth once daily Active levothyroxine (Synthroid) 137 MCG tablet TAKE 1 TABLET BY MOUTH EVERY DAY IN THE MORNING ON EMPTY STOMACH 07/04/19 23 Active Paxlovid, 300/100, 07/20/19 23 Active acetaminophen (Tylenol) 325 MG tablet Take 2 (two) tablets by mouth every 6 hours as needed for Fever or Pain Maximum allowable Acetaminophen amount = 4 Grams (4000 mg) / 24 hours. 30 tablet 08/19/19 23 Active Additional Information Patient not taking.Reported on 05/08/2024 ibuprofen (Motrin) 600 MG tablet Take 1 (one) tablet by mouth every 6 hours as needed for Pain 30 tablet 08/19/19 23 Active Additional Information Patient not taking.Reported on 05/08/2024 oxyCODONE, immediate release, (Roxicodone) 5 MG tabletIndication s:S/P hysterectomy Take 1 (one) tablet by mouth every 4 hours as needed for Pain 20 tablet 08/19/19 23 Active Additional Information Patient not taking.Reported on 05/08/2024 docusate sodium (Colace) 100 MG capsule Take 1 (one) capsule by mouth 2 times daily 60 capsule 08/19/19 23 Active Additional Information Patient not taking.Reported on 05/08/2024 nystatin (Mycostatin) [id number] UNIT/GM ointmentIndicati ons:Lichen sclerosus,Fungal infection Use with the Triamcinolone ointment 0.1% twice a week 30 g 12/14/19 23 Active triamcinolone acetonide (Kenalog) 0.1 % ointmentIndicati ons:Lichen sclerosus,Fungal infection Use with the nystatin ointment twice a week 30 g 12/14/19 23 Active clonazePAM (KlonoPIN) 0.5 MG tablet Take 1 (one) tablet by mouth nightly as needed for Anxiety 05/03/20 24 Active losartan-hydroCH LOROthiazide (Hyzaar) 100-25 MG tablet Take 1 (one) tablet by mouth once daily 03/29/20 24 Active venlafaxine XR 24hr (Effexor XR) 150 MG capsule Take 1 (one) capsule by mouth daily with breakfast Active potassium chloride ER (Klor-Con M) 20 MEQ tablet Take 1 (one) tablet by mouth once daily 08/19/19 25 Active methocarbamol (Robaxin) 500 MG tablet TAKE 1-3 TABLETS THREE TIMES DAILY NEEDED FOR MUSCLE SPASM 08/20/19 25 Active losartan (Cozaar) 100 MG tablet Take 1 (one) tablet by mouth once daily 08/14/19 25 Active Active Problems Problem Noted Date Diagnosed Date Attention-deficit hyperactivity disorder, unspec ified type 03/24/2024 Gastro-esophageal reflux disease without esophag itis 03/24/2024 Major depressive disorder, recurrent, moderate 0 03/24/2024 Generalized anxiety disorder 03/24/2024 Tinnitus, bilateral 03/24/2024 Dysmenorrhea 08/19/2022 Family History Medical History Relation Name Comments None Known Brother 1 Atrial Fibrillation Brother 2 CAD (Coronary Artery Disease) Father Diabetes - Type 2 Father Hyperlipidemia Father Hypertension Father Pulmonary Embolism Father CAD (Coronary Artery Disease) Maternal Grandfather Hyperlipidemia Maternal Grandfather Hypertension Maternal Grandfather Pulmonary Embolism Maternal Grandfather Thyroid Disease Maternal Grandfather CAD (Coronary Artery Disease) Maternal Grandmother Hypertension Maternal Grandmother Thyroid Disease Maternal Grandmother Hypertension Mother CAD (Coronary Artery Disease) Paternal Grandfather Hypertension Paternal Grandfather CAD (Coronary Artery Disease) Paternal Grandmother Hypertension Paternal Grandmother CAD (Coronary Artery Disease) Sister 1 Hyperlipidemia Sister 1 Other Sister 1 lichen sclerosu s Thyroid Disease Sister 1 Hyperlipidemia Sister 2 Relation Name Status Comments Brother 1 Alive Brother 2 Alive Father Alive Maternal Grandfather Maternal Grandmother Mother Alive Paternal Grandfather Paternal Grandmother Sister 1 Alive Sister 2 Alive Social History Tobacco Use Types Packs/Day Years Used Date Smoking Tobacco: Former Smokeless Tobacco: Never Tobacco Cessation:Counseling Given: Not Answered Alcohol Use Standard Drinks/Week Comments Yes 0 (1 standard drink = 0.6 oz pur e alcohol) Comments No Sex and Gender Information Value Date Recorded Sex Assigned at Not on file Legal Sex Female 10:18 AM CDT Gender Identity Not on file Sexual Orientation Not on file Last Filed Vital Signs Vital Sign Reading Time Taken Comments Blood Pressure 130/88 08/28/2024 1:24 PM HVAC LEAD Pulse 79 08/19/2022 2:45 PM HVAC LEAD Temperature 36.3 C (97.3 F) 08/19/2022 1:25 PM HVAC LEAD Respiratory Rate 17 08/19/2022 2:45 PM HVAC LEAD Oxygen Saturation 98% 08/19/2022 2:45 PM HVAC LEAD Inhaled Oxygen Concentration - - Weight 132.7 kg (292 lb 9.6 oz) 08/28/2024 1:24 PM HVAC LEAD Height 167.6 cm (5' 6) 08/28/2024 1:24 PM HVAC LEAD Body Mass Index 47.23 08/28/2024 1:24 PM HVAC LEAD Plan of Treatment Upcoming Encounters Date Type Department Care Team (Late st Contact Info) Description 02/28/2025 9:50 AM CDT Office Visit [facility] - COOLER SERVICER [address] [place] [address] Masha Jay, ETCHER AIRCRAFT-MEDICAL FILE CLERK [address] [facility] [place] [address] Health Maintenance Due Date Last Done Comments COLOGUARD (AGES 45-75) - COLON CA SCREENING 1979 COLON MONITORING 1979 COLONOSCOPY - COLON CA SCREENING 1979 CT COLONOGRAPHY - COLON CA SCREENING 1979 Colorectal Cancer Screening 1979 FIT - COLON CA SCREENING 1979 FLEX SIG - COLON CA SCREENING 1979 MAMMOGRAM 1979 HIV SCREENING 09/24/1994 HEPATITIS C SCREENING 09/20/1997 DTAP/TDAP/TD VACCINES (1 - Tdap) 09/24/1998 HEPATITIS B VACCINE (1 of 3 - 19+ 3-dose series) 09/24/1998 COVID-19 VACCINE ( - season) 2024 10/23/2020, 10/02/2020 DEPRESSION SCREENING 07/04/2024 INFLUENZA VACCINE (Season Ended) 2025 SCREENING FOR DIABETES 02/27/2027 , 02/28/2024, 02/28/2024, Additional history exists ZOSTER VACCINE (1 of 2) 09/24/2029 HIB VACCINE Aged Out No longer eligi ble based on patient's age to complete this topic HPV VACCINE Aged Out No longer eligi ble based on patient's age to complete this topic MENINGOCOCCAL (Group B) VACCINE SHARED DECISION-MAKING Aged Out No longer eligible based on patient's age to complete this topic MENINGOCOCCAL GROUPS A/C/Y/W VACCINE Aged Out No longer eligible based on patient's age to complete this topic PNEUMOCOCCAL VACCINE Aged Out No long er eligible based on patient's age to complete this topic Procedures Procedure Name Priority Date/Time Associated Diagnosis Comments BASIC METABOLIC PANEL (CALCIUM TOTAL) STAT 08/18/2022 1:51 PM HVAC LEAD Dysmenorrhea PMDD (premenstrual dysphoric disorder) from Last 3 Months or Most Recently Relevant to Health Maintenance Results * (ABNORMAL) BASIC METABOLIC PANEL (CALCIUM TOTAL) (08/18/2022 1:51 PM HVAC LEAD) Glucose 92 70 - 105 mg/dL 08/18/2022 2:28 PM HVAC LEAD [facility] Sodium 138 136 - 145 mmol/L 08/18/2022 2:[address] [facility] Potassium 3.0(L) 3.5 - 5.1 mmol/L 08/18/2022 2:28 PM HVAC LEAD [facility] Chloride 102 98 - 107 mmol/L 08/18/2022 2:[address] [facility] CO2 26 23 - 31 mmol/L 08/18/2022 2:[address] [facility] Calcium 9.4 8.4 - 10.4 mg/dL 08/18/2022 2:[address] [facility] Anion Gap 10 8 - 18 mmol/L 08/18/2022 2:[address] [facility] BUN 8 7 - 18.7 mg/dL 08/18/2022 2:[address] [facility] Creatinine 0.66 0.57 - 1.11 mg/dL 08/18/2022 2:[address] [facility] eGFR by CKD-EPI >90 >=90 mL/min/1.7 3 m2 08/18/2022 2:[address] [facility] Blood BLOOD SPECIMEN / Unknown Venipuncture / Unknown 08/18/2022 1:51 PM HVAC LEAD 08/18/2022 2:07 PM HVAC LEAD Zaida Wheeler MD LAB - CHEMISTRY ORDERABLES Fin al Result [facility] [address] [place] [id number] from Last 3 Months or Most Recently Relevant to Health Maintenance Insurance [employer] [place] SELF PAY NO INSURANCE Member Subscriber Plan / Payer (Ef fective for All Dates) Name:Anthony Ribeiro Member ID:Not on file Relation to Subscriber:Not on file Name:ANTHONY RIBEIRO Subscriber ID:Not on file (Home) Address: [address] [place] [address] Payer ID:Not on file Group ID:Not on file Type:Self Pay Address: [place], [place] [facility] Care Teams Hairspring Setter Relationship Specialty Start Date End Date Julien Eduardo DO [address] [place] [address] PCP - General Family Medicine 04/17/24
--- OUTSIDE RECORDS SUMMARY | 2024-12-21 00:22 | XMS_ITS | Encounter Summary ---
Author Organization [facility] Health Address [facility] [facility] [place] [address] Care Team Providers Care Public Relations Intern Name Role Phone Brandon Ordaz MD Primary Care Provider [phone] Julien Eduardo DO Primary Care Provider [phone] Reason for Visit * Reason Onset Date Comments Encounter Opened In Error 09/20/2022 Encounter Details Date Type Department Care Team (Late st Contact Info) Description 09/20/2022 Telephone [facility] [address] [place] [address] Jer Patterson MD [address] [facility] [address] [place] [address] Encounter Opened In Error Social History Tobacco Use Types Packs/Day Years [...] on file documented as of this encounter Plan of Treatment Upcoming Encounters Date Type Department Care Team (Late Contact Info) Description 02/28/2025 9:50 AM CDT Office Visit [facility] - [employer] [address] [facility] [address] [place] [id number] Masha Jay, COMMUNITY SERVICE DIRECTOR-SUPERVISOR TELLERS [address] [place] [address] documented as of this encounter Visit Diagnoses Not on filedocumented in this encounter Care Teams Public Relations Intern Relationship Specialty Start Date End Date Brandon Ordaz MD [address] [place] [address] PCP - General 10/12/21 04/16/24 Julien Eduardo DO [address] [place] [id number] PCP - General Family Medicine 04/17/24 documented as of this encounter
[2024-12-21 10:24] VITALS: BP 160/96; PULSE 83; RESP 20; TEMP 36.3; O2SAT 98; BMI 49.6
[2024-12-21] MEDS: LACTATED RINGERS 1,000 ML 150 ML IV CONT (10:33)
--- NOTE | 2024-12-21 10:49 | P.PNAN_ITS ---
Anes - Initial Pre Proc Eval Procedure: Operation Date: 12/21/24 11:30 Proposed Procedures p Screening Colonoscopy - Kalhil Reynolds MD Date/Time: 12/21/24 10:49 Surgeon: Kahlil Reynolds MD Pre Op Diagnosis: screening Patient Data Age: 44 Gender: F Height: 1.63 m Weight: 131.2 kg Last Vital Signs Temp 97.3 F L 12/21/24 10:24 Pulse 83 12/21/24 10:24 Resp 20 12/21/24 10:24 BP 160/96 H 12/21/24 10:24 Pulse Ox 98 12/21/24 10:24 O2 Del Method Room Air 12/21/24 10:24 Allergies Allergy/AdvReac Type Severity Reaction Status Date / Time No Known Allergies Allergy Verified 12/21/24 10:22 Home Medications ?Medication ?Instructions ?Recorded ?Confirmed ?Type nystatin 100,000 unit/gram topical 1 applic topical BID PRN itching 09/06/23 12/21/24 History ointment omeprazole 20 mg capsule,delayed 20 mg PO DAILY 09/06/23 12/21/24 History release triamcinolone acetonide 0.1 % 1 applic topical QID PRN itching 09/06/23 12/21/24 History topical ointment nifedipine 60 mg tablet,extended See Rx Instructions .Route 09/16/23 12/21/24 Rx release .COMPLEX #90 tabs venlafaxine 150 mg 150 mg PO DAILY depression 90 days 11/10/23 12/21/24 Rx capsule,extended release 24 hr #90 caps rosuvastatin 10 mg tablet See Rx Instructions .Route 12/21/23 12/05/24 Rx .COMPLEX #90 tabs levothyroxine 137 mcg tablet See Rx Instructions .Route 03/29/24 12/21/24 Rx .COMPLEX #90 tabs losartan 100 See Rx Instructions .Route 03/29/24 12/21/24 Rx mg-hydrochlorothiazide 25 mg tablet .COMPLEX #90 tabs methocarbamol 500 mg tablet 500 mg PO .qday PRN muscle relaxer 08/20/24 12/21/24 History potassium chloride 25 mEq oral 20 meq PO DAILY 08/20/24 12/21/24 History packet Patient hx anesthesia problems: none Family hx anesthesia problems: none Results Review: All pre-operative results and documents have been reviewed as part of the pre- operative evaluation. [facility] Past Medical History Medical History (Updated 11/21/24 @ 00:01 by Gary Moncada) Obesity, morbid, BMI 50 or higher Lichen sclerosus Anxiety Depression Hepatic steatosis GERD (gastroesophageal reflux disease) Hyperlipidemia Hypertension Hypothyroidism PCOS (polycystic ovarian syndrome) Surgical History Surgical History (Updated 09/09/23 @ 14:44 by Yesi Mcrae, PAKhai) History of total abdominal hysterectomy and bilateral salpingo-oophorectomy Family History Family History (Updated 09/09/23 @ 10:11 by Ysei Mcrae, PAKristineC) Father Hypertension Acute myocardial infarction Heart disease S/P CABG Mother Hypertension Bbomikn-Haxeg-Wmicz disease Grandparent Cerebrovascular accident Heart disease Hypertension Acute myocardial infarction Ljochiu-Zibud-Qyapt disease Hypothyroidism Social History Social History (Updated 08/31/24 @ 12:39 by Robert Cummins DO) Smoking status: Current some day smoker Tobacco type: e-cigarettes/vaping Additional smoking assessment comments: socially in college Alcohol intake: former Substance use: former Substance use type: marijuana Other substance usage details: daily Do You Feel Safe in your Home?: Yes Lack of Transportation: No Lack of Food: Never True Current Housing: I Have Housing Concerned About Future Housing: No Difficulty Paying Gas/Electric Bills: No Difficulty Paying for Meds: No Currently Unemployed: No Education: Bachelor's Degree Difficulty w/ Childcare or Family Care: No Living arrangements: with family Occupation/Education: unemployed Gender identity (if verbalized by the patient): Female Sexual Orientation (if Verbalized by the Patient): Straight or Heterosexual Spiritual care concerns: No Anes - Eval Final PreProcedure Day of Procedure 12/21/24 10:49 Patient weight: super morbidly obese Heart: regular rate and rhythm Lungs: clear to auscultation Airway: Mallampati scale class II Neurological: alert and oriented Last oral intake: >/= 8 hours ASA classification: III Emergent: no Anesthetic plan: proceed Anesthesia type and monitoring: general GIVS and standard monitoring Results Review: All pre-operative results and documents have been reviewed as part of the pre- operative evaluation. Informed Consent: The patient's anesthetic plan and its attendant risks and benefits were discussed with the patient/family/POA. Questions were solicited and answers provided to the satisfaction of the patient/family/POA.
--- NOTE | 2024-12-21 11:33 | PM.HPGS ---
History of Present Illness History of Present Illness Consent: Risks, benefits, and alternatives have been discussed and questions answered. Patient agrees to proceed with procedure. Chief complaint: screening Narrative: Margarita Mazariegos is a 44 year old female here for first screening colonoscopy Review of Systems Review of Systems: All systems reviewed & are unremarkable except as noted in HPI and below PMFSH Past Medical History Medical History (Updated 12/21/24 @ 11:33 by Kahlil Reynolds MD) Colon cancer screening Obesity, morbid, BMI 50 or higher Lichen sclerosus Anxiety Depression Hepatic steatosis GERD (gastroesophageal reflux disease) Hyperlipidemia Hypertension Hypothyroidism PCOS (polycystic ovarian syndrome) Surgical History Surgical History (Updated 09/09/23 @ 14:44 by Yesi Mcrae, PAKristineC) History of total abdominal hysterectomy and bilateral salpingo-oophorectomy Family History Family History (Updated 09/09/23 @ 10:11 by Yesi Mcrae, PAKristineC) Father Hypertension Acute myocardial infarction Heart disease S/P CABG Mother Hypertension Nmacszl-Ffsdb-Avtvn disease Grandparent Cerebrovascular accident Heart disease Hypertension Acute myocardial infarction Jsxzeww-Cnbtu-Ldmuu disease Hypothyroidism Social History Social History (Updated 08/31/24 @ 12:39 by Robert Cummins DO) Smoking status: Current some day smoker Tobacco type: e-cigarettes/vaping Additional smoking assessment comments: socially in college Alcohol intake: former Substance use: former Substance use type: marijuana Other substance usage details: daily Do You Feel Safe in your Home?: Yes Lack of Transportation: No Lack of Food: Never True Current Housing: I Have Housing Concerned About Future Housing: No Difficulty Paying Gas/Electric Bills: No Difficulty Paying for Meds: No Currently Unemployed: No Education: Bachelor's Degree Difficulty w/ Childcare or Family Care: No Living arrangements: with family Occupation/Education: unemployed Gender identity (if verbalized by the patient): Female Sexual Orientation (if Verbalized by the Patient): Straight or Heterosexual Spiritual care concerns: No Meds Home Medications and Allergies Home Medications ?Medication ?Instructions ?Recorded ?Confirmed ?Type nystatin 100,000 unit/gram topical 1 applic topical BID PRN itching 09/06/23 12/21/24 History ointment omeprazole 20 mg capsule,delayed 20 mg PO DAILY 09/06/23 12/21/24 History release triamcinolone acetonide 0.1 % 1 applic topical QID PRN itching 09/06/23 12/21/24 History topical ointment nifedipine 60 mg tablet,extended See Rx Instructions .Route 09/16/23 12/21/24 Rx release .COMPLEX #90 tabs venlafaxine 150 mg 150 mg PO DAILY depression 90 days 11/10/23 12/21/24 Rx capsule,extended release 24 hr #90 caps rosuvastatin 10 mg tablet See Rx Instructions .Route 12/21/23 12/05/24 Rx .COMPLEX #90 tabs levothyroxine 137 mcg tablet See Rx Instructions .Route 03/29/24 12/21/24 Rx .COMPLEX #90 tabs losartan 100 See Rx Instructions .Route 03/29/24 12/21/24 Rx mg-hydrochlorothiazide 25 mg tablet .COMPLEX #90 tabs methocarbamol 500 mg tablet 500 mg PO .qday PRN muscle relaxer 08/20/24 12/21/24 History potassium chloride 25 mEq oral 20 meq PO DAILY 08/20/24 12/21/24 History packet Allergies Allergy/AdvReac Type Severity Reaction Status Date / Time No Known Allergies Allergy Verified 12/21/24 10:22 Vital Signs Vital Signs - 24 hr 12/21/24 10:24 Temperature 97.3 F L Pulse Rate 83 Respiratory Rate 20 Blood Pressure 160/96 H Pulse Oximetry 98 Oxygen Delivery Room Air Exam Const: General: comfortable and no acute distress HENMT: Face/Nose/Sinus: Normal nares present Eyes: General: appearance normal, both eyes and all related structures Neck: Neck: no JVD Resp: Auscultation: clear to auscultation bilaterally Cardio: Rate: regular rate Rhythm: regular rhythm GI: Inspection: non-distended GI Palp: Yes Soft to palpation Skin: General skin exam: normal color Neuro: General: gait normal Speech: normal speech Extrem: General: normal to inspection Psych: Mental Status: mental status grossly normal Assessment and Plan Assessment and plan (1) Colon cancer screening: Code(s): Z12.11 - Encounter for screening for malignant neoplasm of colon Status: Acute Assessment and Plan: colonoscopy
[2024-12-21 11:50] VITALS: BP 93/51; PULSE 64; RESP 21; O2SAT 95
[2024-12-21 12:00] VITALS: BP 111/73; PULSE 69; RESP 20; O2SAT 100
[2024-12-21 12:10] VITALS: BP 142/81; PULSE 63; RESP 20; O2SAT 98
== END 2024-12-21 12:18 | disposition home or self-care (01) ==
PROVIDERS: PCP Family Medicine; Referring Provider Family Medicine; Visit Provider Internal Medicine Gastroenterology
PROC: 0DJD8ZZ Inspection of Lower Intestinal Tract, Via Natural or Artificial Opening Endoscopic (ICD-10-PCS; CPT 45378; principal; 2024-12-21 11:30)
DX: Z12.11 Encounter for screening for malignant neoplasm of colon (principal); F17.290 Nicotine dependence, other tobacco product, uncomplicated; E66.01 Morbid (severe) obesity due to excess calories; Z68.42 Body mass index [BMI] 45.0-49.9, adult
CPT/HCPCS: 45378; J2003; J2704; J7120